=== PATIENT | male | born 1975 | race Two or more races ===

== ENCOUNTER 2020-03-18 20:07 | Emergency (ER) | payer SELFPAY ==
[~2020-03-18] VITALS: Ht 172.7 cm; Wt 90.9 kg
[2020-03-18] MEDS ORDERED: IBUP-1007 PO (21:02)
[2020-03-18] MEDS ORDERED: CEPH-264 PO (21:02)
[2020-03-18] MEDS ORDERED: HYDR-3164 PO (21:02)
--- NOTE | 2020-03-18 21:03 | PHYS DOC ---
Past Medical History Past Medical History: No Pertinent History Past Surgical History: No Surgical History Smoking Status: Never Smoker Alcohol Use: None General Adult EDM: Chief Complaint: LACERATION/AVULSION HPI: HPI: Patient is a 44 year old male who presents with was walking in the yard when he tripped over a garden fork in the garden fork went into the left lateral lower leg. This caused a 2 inch laceration. Patient is ambulatory with a steady gait . Patient states his last tetanus shot was 2 years ago. Rates his pain a 6 out of 10 and there is no radiation and its a aching pain. Review of Systems: Review of Systems: Constitutional: Denies fever or chills. [] Eyes: Denies change in visual acuity. [] HENT: Denies nasal congestion or sore throat. [] Respiratory: Denies cough or shortness of breath. [] Cardiovascular: Denies chest pain or edema. [] GI: Denies abdominal pain, nausea, vomiting, bloody stools or diarrhea. [] : Denies dysuria. [] Musculoskeletal: Left lower lateral leg pain due to laceration injury. Denies back pain or joint pain. [] Integument: Denies rash. 2 inch laceration to left lower lateral leg. [] Neurologic: Denies headache, focal weakness or sensory changes. [] Endocrine: Denies polyuria or polydipsia. [] Lymphatic: Denies swollen glands. [] Psychiatric: Denies depression or anxiety. [] Heart Score: Risk Factors: Risk Factors: DM, Current or recent (<one month) smoker, HTN, HLP, family history of CAD, obesity. Risk Scores: Score 0 - 3: 2.5% MACE over next 6 weeks - Discharge Home Score 4 - 6: 20.3% MACE over next 6 weeks - Admit for Clinical Observation Score 7 - 10: 72.7% MACE over next 6 weeks - Early Invasive Strategies Current Medications: Current Medications Medications (Trade) Dose Ordered Sig/Laureen Start Time Stop Time Status Last Admin Dose Admin Lidocaine HCl (Lidocaine 1% 20ml Vial) 20 ml 1X ONCE 03/18/20 21:15 03/18/20 21:16 Allergies: Allergies: Allergies Coded Allergies Type Severity Reaction Last Updated Verified No Known Drug Allergies 03/18/20 No Physical Exam: PE: Constitutional: Well developed, well nourished, no acute distress, non-toxic appearance. [] HENT: Normocephalic, atraumatic, bilateral external ears normal, oropharynx moist, no oral exudates, nose normal. [] Eyes: PERRLA, EOMI, conjunctiva normal, no discharge. [] Neck: Normal range of motion, no tenderness, supple, no stridor. [] Cardiovascular:Heart rate regular rhythm, no murmur [] Lungs & Thorax: Bilateral breath sounds clear to auscultation [] Abdomen: Bowel sounds normal, soft, no tenderness, no masses, no pulsatile masses. [] Skin: Warm, dry, no erythema, no rash. 2 inch laceration to left lower lateral leg. [] Back: No tenderness, no CVA tenderness. [] Extremities: No tenderness, no cyanosis, no clubbing, ROM intact, no edema. [] Neurologic: Alert and oriented X 3, normal motor function, normal sensory function, no focal deficits noted. [] Psychologic: Affect normal, judgement normal, mood normal. [] Current Patient Data: Vital Signs: Vital Signs Date Time Temp Pulse Resp B/P (MAP) Pulse Ox O2 Delivery O2 Flow Rate FiO2 03/18/20 20:17 97.9 82 18 164/90 (114) 98 Room Air 97.9 EKG: EKG: [] Radiology/Procedures: Radiology/Procedures: [] Impression: [facility] [address] [place], [place] [id number] IMAGING REPORT Signed PATIENT: SMITH SNIDER ACCOUNT: [id number] : 1975 LOCATION: ER AGE: 44 SEX: M EXAM STATUS: PRE ER ORD. PHYSICIAN: LYNSEY TOMAS APRN REASON: LACERATION ON LATERAL LEG PROCEDURE: TIBIA FIBULA LEFT Exam: Left tib-fib 2 views INDICATION: Laceration on lateral leg TECHNIQUE: Frontal and lateral views the left tibia and fibula Comparisons: None FINDINGS: Bone mineralization is normal. No acute or healed fractures. There is a soft tissue defect along the lateral aspect of the distal lower leg. No radiopaque foreign body is identified. Joint spaces are well-maintained. IMPRESSION: Soft tissue defect along the lateral aspect of the distal lower leg without radiopaque foreign body or underlying osseous abnormality identified. Electronically signed by: Edwina Molina MD (03/18/2020 9:23 PM) [id number] DICTATED and SIGNED BY: EDWINA MOLINA MD DATE: 03/18/202122 Course & Med Decision Making: Course & Med Decision Making Pertinent Labs and Imaging studies reviewed. (See chart for details) No deformity or bruising or abrasion or laxity in the left knee, ankle, foot or toes. Patient denies numbness or tingling, coolness of the extremity, color change or focal weakness. Skin pink warm and dry. Pedal pulses strong and present. Cap refill less than 3 seconds. No deformity to the extremity and there is no foreign bodies that are seen. Laceration repair Location: left lateral lower leg Local anesthesia: 1% lidocaine Interrupted sutures/Internal sutures: 7 sutures using 3-0 Ethilon Nerve/ligament/muscle damage: none Cleaning and irrigation: Saline and Chlorhexidine The appropriate timeout was taken. The area was prepped and draped in the usual sterile fashion. The wound was copiously irrigated with normal saline and chlo rhexidine. Patient tolerated well without complication. Dressing was applied to the area follow-up education is given to observe for signs and symptoms of infection, bleeding and to follow-up promptly if these occur. Patient can return in 48 hours for a wound recheck. Sutures to be removed in 7 to 10 days. Rosy Disclaimer: Dragbere Disclaimer: This electronic medical record was generated, in whole or in part, using a voice recognition dictation system. Departure Departure Impression: Primary Impression: Laceration Disposition: 01 HOME, SELF-CARE Condition: STABLE Patient Instructions: Laceration Care, Adult Additional Instructions: Return here in 10 days for suture removal. Watch for signs of infection. Take ibuprofen or Tylenol for your pain. Use ice and elevation to help with pain or any swelling. Scripts Ibuprofen (IBUPROFEN) 600 Mg Tablet 600 MG PO PRN Q6HRS PRN for INFLAMMATION, #20 TAB Prov: LYNSEY TOMAS [employer]ISE [employer]GER 03/18/20 Hydrocodone/Apap 5-325 (NORCO 5-325 TABLET) 1 Each Tablet 1 TAB PO PRN Q6HRS PRN for PAIN, #8 TAB 0 Refills Prov: LYNSEY TOMAS APRN 03/18/20 Cephalexin (KEFLEX) 500 Mg Capsule 1 CAP PO TID for 7 Days, #21 CAP 0 Refills Prov: LYNSEY TOMAS APRN 03/18/20 Justicifation of Admission Dx: Justifications for Admission: Justification of Admission Dx: N/A LYNSEY TOMAS APRN Mar 18, 2020 21:03
[2020-03-18] MEDS ORDERED: LIDOCAINE 1% Multi-Dose 20 ML VIAL. INJ ONE (21:15)
--- NOTE | 2020-03-18 21:26 | RAD ---
Exam: Left tib-fib 2 views INDICATION: Laceration on lateral leg TECHNIQUE: Frontal and lateral views the left tibia and fibula Comparisons: None FINDINGS: Bone mineralization is normal. No acute or healed fractures. There is a soft tissue defect along the lateral aspect of the distal lower leg. No radiopaque foreign body is identified. Joint spaces are well-maintained. IMPRESSION: Soft tissue defect along the lateral aspect of the distal lower leg without radiopaque foreign body or underlying osseous abnormality identified. Electronically signed by: Edwina Fernandez MD (03/18/2020 9:23 PM) [id number]
[2020-03-18 22:45] VITALS: BP 147/88
== END 2020-03-18 22:50 | disposition home or self-care (01) ==
LOC: ER 20:07
DX: S81.812A Laceration without foreign body, left lower leg, initial encounter (principal); W22.8XXA Striking against or struck by other objects, initial encounter; Y93.01 Activity, walking, marching and hiking; Y92.096 Garden or yard of other non-institutional residence as the place of occurrence of the external cause; Y99.8 Other external cause status
CPT/HCPCS: 12002; 73590; 99283; J3490